=== PATIENT | male | born 1980 | race Caucasian/White ===

== ENCOUNTER 2020-08-12 07:06 | Inpatient (IN) | payer MEDICAID ==
[~2020-08-12] VITALS: Ht 180.3 cm; Wt 70.5 kg
[2020-08-12 07:54] LABS: BASOPHILS 0.5 % (0-2); EOSINOPHILS 0.6 % (0-7); HEMATOCRIT 44.4 % (42.0-54.0); MCH 33.2 pg (26.0-34.0); MCHC 33.8 g/dL (31.0-37.0); MCV 98.2 fL (80.0-100.0); MEAN PLATELET VOLUME 8.5 fL (7.4-10.4); MONOCYTES 13.6 % (2-11); NEUTROPHILS 62.3 % (40-80); PLATELET COUNT 191 10x3/uL (130-400); RBC 4.52 10x6/uL (4.20-6.10); RDW 12.7 % (11.5-14.5); WBC 7.8 10x3/uL (4.8-10.8)
[2020-08-12 08:13] LABS: CALC OSMOLALITY 272 mosm/kg (275-300); CALCIUM 8.1 mg/dL (8.5-10.1); CARBON DIOXIDE 22.2 mmol/L (21.0-32.0); CHLORIDE - SERUM 97 mmol/L (98-107); CREATININE - SERUM 0.9 mg/dL (0.6-1.3); GLUCOSE 162 mg/dL (74-106); POTASSIUM - SERUM 3.3 mmol/L (3.5-5.1); SODIUM 136 mmol/L (136-145); UREA NITROGEN 3 mg/dL (7-18); eGFR NON AFRICAN AMERICAN > 90 mL/min (90-120)
[2020-08-12 08:16] LABS: ALBUMIN 3.4 g/dL (3.4-5.0); ALKALINE PHOSPHATASE 193 U/L (30-120); ALT (SGPT) 83 U/L (10-68); BILIRUBIN - TOTAL 1.06 mg/dL (0.2-1.3); PROTEIN - SERUM 7.6 g/dL (6.4-8.2)
[2020-08-12 08:27] LABS: AMYLASE - SERUM 74 U/L (25-115); LIPASE 240 U/L (73-393)
[2020-08-12 08:43] LABS: INR 1.29 (0.85-1.17); PROTIME 14.9 SECONDS (11.6-15.0)
[2020-08-12 08:44] LABS: APTT 33.5 SECONDS (22.8-39.4)
[2020-08-12 11:43] LABS: BASOPHILS 0.5 % (0-2); EOSINOPHILS 0.3 % (0-7); HEMATOCRIT 42.1 % (42.0-54.0); HEMOGLOBIN 14.3 g/dL (13.5-17.5); LYMPHOCYTES 24.9 % (15-50); MCH 33.5 pg (26.0-34.0); MCHC 33.9 g/dL (31.0-37.0); MCV 98.7 fL (80.0-100.0); MEAN PLATELET VOLUME 8.6 fL (7.4-10.4); MONOCYTES 11.2 % (2-11); NEUTROPHILS 63.1 % (40-80); PLATELET COUNT 169 10x3/uL (130-400); RBC 4.27 10x6/uL (4.20-6.10); RDW 12.8 % (11.5-14.5); WBC 8.8 10x3/uL (4.8-10.8)
[2020-08-12 12:00] LABS: BILIRUBIN NEGATIVE (NEGATIVE); KETONE NEGATIVE mg/dL (< 1+); NITRITE NEGATIVE (NEGATIVE); PH 6.5 (5.0-8.0); UROBILINOGEN NORMAL mg/dL (< 2)
[2020-08-12 12:15] VITALS: BP 122/72
--- NOTE | 2020-08-12 16:19 | NUR ---
BEDSIDE REPORT GIVEN TO GI KITCHEN RUNNER AT THIS TIME
--- NOTE | 2020-08-12 17:00 | NUR ---
PT ARRIVES TO FLOOR VIA STRETCHER ESCORTED BY GI STAFF. PT IS AAO X 4 AND ANSWERS ALL QUESTIONS APPROPRIATELY. PT DENIES PRESENCE OF PAIN/N/V AT THIS TIME. PT DENIES PRESENCE OF DYSPNEA/SOB AT THIS TIME. PIV TO RIGHT HAND INFUSING WITHOUT COMPROMISE. INCENTIVE SPIROMETER GIVEN AND ENCOURAGED. PT DENIES QUESTIONS/CONCERNS. BED IS IN THE LOWEST POSITION. CALL LIGHT AND BEDSIDE TABLE ARE WITHIN REACH. SIDE RAILS X 2. PT DENIES FURTHER NEEDS. WILLC CONT TO MONITOR.
[2020-08-12] MEDS ORDERED: PEPCID40 MG PO (17:18)
[2020-08-12 17:25] VITALS: BP 115/72; BMI 21.6
[2020-08-12 18:06] LABS: BASOPHILS 0.6 % (0-2); EOSINOPHILS 1.5 % (0-7); HEMATOCRIT 39.8 % (42.0-54.0); HEMOGLOBIN 13.2 g/dL (13.5-17.5); LYMPHOCYTES 24.2 % (15-50); MCH 33.4 pg (26.0-34.0); MCHC 33.3 g/dL (31.0-37.0); MCV 100.4 fL (80.0-100.0); MEAN PLATELET VOLUME 8.8 fL (7.4-10.4); MONOCYTES 12.3 % (2-11); NEUTROPHILS 61.4 % (40-80); PLATELET COUNT 139 10x3/uL (130-400); RBC 3.96 10x6/uL (4.20-6.10); RDW 12.8 % (11.5-14.5)
[2020-08-12 18:18] LABS: WBC 5.6 10x3/uL (4.8-10.8)
--- NOTE | 2020-08-12 18:33 | NUR ---
DROP MACHINE OPERATOR PLACED PER ORDER. RATE IS 110 ST PER DROP MACHINE OPERATOR TECH.
[2020-08-12 19:49] VITALS: Ht 180.3 cm; Wt 70.5 kg
[2020-08-12 20:00] VITALS: BP 113/66
[2020-08-13] VITALS: BP 126/81
[2020-08-13 04:00] VITALS: BP 131/85
--- NOTE | 2020-08-13 05:15 | NUR ---
I have reviewed this patient and I concur with the Shift Assessment completed by the Licensed Practical Nurse today this shift.
[2020-08-13 05:30] LABS: BASOPHILS 0.4 % (0-2); EOSINOPHILS 0.9 % (0-7); HEMATOCRIT 36.3 % (42.0-54.0); HEMOGLOBIN 12.5 g/dL (13.5-17.5); LYMPHOCYTES 17.2 % (15-50); MCHC 34.4 g/dL (31.0-37.0); MCV 99.1 fL (80.0-100.0); MEAN PLATELET VOLUME 8.9 fL (7.4-10.4); MONOCYTES 15.5 % (2-11); PLATELET COUNT 130 10x3/uL (130-400); RBC 3.67 10x6/uL (4.20-6.10); RDW 12.8 % (11.5-14.5); WBC 5.1 10x3/uL (4.8-10.8)
[2020-08-13 06:20] LABS: ALBUMIN 2.7 g/dL (3.4-5.0); ALKALINE PHOSPHATASE 164 U/L (30-120); ALT (SGPT) 72 U/L (10-68); BILIRUBIN - TOTAL 1.91 mg/dL (0.2-1.3); CALCIUM 7.7 mg/dL (8.5-10.1); CARBON DIOXIDE 25.3 mmol/L (21.0-32.0); CHLORIDE - SERUM 106 mmol/L (98-107); GLUCOSE 135 mg/dL (74-106); MAGNESIUM - SERUM 1.7 mg/dL (1.8-2.4); PHOSPHOROUS 2.4 mg/dL (2.5-4.9); PROTEIN - SERUM 6.1 g/dL (6.4-8.2); SODIUM 140 mmol/L (136-145); eGFR NON AFRICAN AMERICAN 88 mL/min (90-120)
[2020-08-13 06:54] LABS: CALC OSMOLALITY 276 mosm/kg (275-300)
[2020-08-13 06:59] LABS: UREA NITROGEN 2 mg/dL (7-18)
--- NOTE | 2020-08-13 07:17 | NUR ---
RESTING IN BED WITH EYES CLOSED, EASILY AROUSED TO SPEECH. IV LOCATED TO RIGHT HAND CURRENTLY RUNNING NS WITH 20K CURRENTLY RUNNING @ 100ML. NO CURRENT S/S OF DISTRESS, DENIES NEEDS AT THIS TIME, WILL CONT TO MONITOR.
[2020-08-13] MEDS ORDERED: TEGRETOL200 MG PO (08:10)
[2020-08-13] MEDS ORDERED: CARAFATE1 G PO (08:11)
[2020-08-13] MEDS ORDERED: PROTONIX40 MG PO (08:13)
[2020-08-13 09:39] VITALS: BP 116/80
--- NOTE | 2020-08-13 10:55 | NUR ---
IV OUT, CATHETER TIP INTACT. DC PAPERS SIGNED. DC`D HOME WITH MOM WITH NO CONCERNS NOTED.
== END 2020-08-13 10:56 | disposition home or self-care (01) | DRG 382 ==
LOC: D.ER 07:06 → D.EDHOLD 10:15 → D.MS 17:14
PROVIDERS: Family Medicine; Internal Medicine Gastroenterology; ADMIT Family Medicine; ATTEND Family Medicine
PROC: 0DJ08ZZ Inspection of Upper Intestinal Tract, Via Natural or Artificial Opening Endoscopic (ICD-10-PCS; principal; 2020-08-12 14:38)
DX: K22.11 Ulcer of esophagus with bleeding (principal); F10.10 Alcohol abuse, uncomplicated; K29.71 Gastritis, unspecified, with bleeding; E87.6 Hypokalemia; K21.9 Gastro-esophageal reflux disease without esophagitis; Z72.0 Tobacco use; F10.129 Alcohol abuse with intoxication, unspecified; Y90.8 Blood alcohol level of 240 mg/100 ml or more